=== PATIENT | female | born 1995 | race Caucasian/White ===

== ENCOUNTER 2017-08-15 07:52 | Emergency (ER) | payer OTHER ==
[~2017-08-15] VITALS: Ht 157.5 cm; Wt 49.1 kg
[2017-08-15] MEDS ORDERED: ZARAH (07:56)
[2017-08-15] MEDS ORDERED: ZANT300T PO (08:10)
[2017-08-15] MEDS ORDERED: BENA25TA10 PO (08:10)
[2017-08-15] MEDS ORDERED: PRED20TA PO (08:10)
[2017-08-15] MEDS ORDERED: diphenhydrAMINE 25 MG CAP PO ONE (08:15)
[2017-08-15] MEDS ORDERED: predniSONE 20 MG TAB PO ONE (08:15)
[2017-08-15 08:33] VITALS: BP 110/80
== END 2017-08-15 08:41 | disposition home or self-care (01) ==
LOC: M ED 07:52
DX: L50.0 Allergic urticaria (principal); Z88.0 Allergy status to penicillin